=== PATIENT | male | born 1945 | race African-American/Black ===

== ENCOUNTER 2017-10-25 18:49 | Inpatient (IN) ==
[2017-10-25] MEDS ORDERED: ALBUTEROL NEB SOLN 5 MG/ML 20 ML/BOTTLE CONT NEB STA (19:28)
[2017-10-25] MEDS ORDERED: SODIUM CHLORIDE 0.9% 1,000 ML IV PRN (19:56)
[2017-10-25 20:35] LABS: Lymphocytes # 0.2 10*3/uL (1.4-4.0); Lymphocytes % 89.5 % (21.2-54.2); Mean Corpuscular HGB Conc 33.3 GM/DL (32-36); Mean Corpuscular Hemoglobin 32 PG (27-34); Mean Corpuscular Volume 97.1 FL (87-102); Mean Platelet Volume 11.1 FL (9.6-12.0); Monocytes % 5.3 % (1.7-12.7); Neutrophils % 5.2 % (38.7-73.9); Red Blood Count 2.07 MC/CUMM (3.8-5.5); Red Cell Distribution Width 13.2 % (9.3-17.3)
[2017-10-25 20:39] LABS: Hematocrit 20.1 VOL% (42.0-52.0); Hemoglobin 6.7 GM/DL (14.0-18.0); Platelet Count 21 T/CUMM (130-400); White Blood Count 0.2 T/CUMM (4-12)
[2017-10-25 21:02] LABS: Hypochromasia Slight; Lymphocytes 81 % (20-55); Platelet Estimate Decreased; Segmented Neutrophils 13 % (50-85); Total Cells Counted 100
[2017-10-25 21:03] LABS: Ovalocytes Few
[2017-10-25] MEDS ORDERED: ONDANSETRON 4 MG/2 ML VIAL IV PRN ×2 (21:39→21:58)
[2017-10-25] MEDS ORDERED: ALBUTEROL/IPRATROPIUM 3 ML NEB RESP TX PRN (21:39)
[2017-10-25] MEDS ORDERED: guaiFENesin 200 MG/10 ML UDCUP PO PRN (21:58)
[2017-10-25] MEDS ORDERED: ACETAMINOPHEN 325 MG TABLET PO PRN (21:58)
[2017-10-25] MEDS ORDERED: TEMAZEPAM 7.5 MG CAPSULE PO PRN (21:58)
[2017-10-25] MEDS ORDERED: chlorproMAZINE INJ 25 MG in SODIUM CHLORIDE 0.9% 100 ML IV PRN (21:58)
[2017-10-25] MEDS ORDERED: MYLANTA/LIDO VISC 2:1 300 ML BOTTLE SWISH/SPIT PRN (21:58)
[2017-10-25] MEDS ORDERED: LOPERAMIDE 2 MG CAPSULE PO PRN ×2 (21:58)
[2017-10-25] MEDS ORDERED: PROMETHAZINE INJ 25 MG in SODIUM CHLORIDE 0.9% 50 ML IV PRN (21:58)
[2017-10-25] MEDS ORDERED: LACTULOSE 20 GM/30 ML UDCUP PO PRN (21:58)
[2017-10-25] MEDS ORDERED: ALPRAZolam 0.25 MG TABLET PO PRN (21:58)
[2017-10-25] MEDS ORDERED: BENZTROPINE 2 MG/2 ML AMP IV PRN (21:58)
[2017-10-25] MEDS ORDERED: traMADol 50 MG TABLET PO PRN (21:58)
[2017-10-25] MEDS ORDERED: ALUMINUM/MAGNES/SIMETH MAX STR 30 ML UDCUP PO PRN (21:58)
[2017-10-25] MEDS ORDERED: chlorproMAZINE 25 MG TABLET PO PRN (21:58)
[2017-10-25] MEDS ORDERED: chlorproMAZINE INJ 50 MG in SODIUM CHLORIDE 0.9% 100 ML IV PRN (21:58)
[2017-10-25] MEDS ORDERED: diphenhydrAMINE CAP 25 MG CAPSULE PO PRN (21:58)
[2017-10-25] MEDS ORDERED: MYLANTA/LIDO VISC 2:1 300 ML BOTTLE SWISH/SWAL PRN (21:58)
[2017-10-25] MEDS ORDERED: MAGNESIUM HYDROXIDE SUSP 30 ML UDCUP PO PRN (21:58)
[2017-10-25] MEDS ORDERED: FILGRASTIM-SNDZ 300 MCG/0.5 ML SYRINGE SUBCUT ONE (22:11)
[2017-10-25 22:18] LABS: Hematocrit 19.8 VOL% (42.0-52.0); Hemoglobin 6.6 GM/DL (14.0-18.0); Lymphocytes # 0.1 10*3/uL (1.4-4.0); Lymphocytes % 81.8 % (21.2-54.2); Mean Corpuscular HGB Conc 33.3 GM/DL (32-36); Mean Corpuscular Hemoglobin 32 PG (27-34); Mean Corpuscular Volume 97.1 FL (87-102); Mean Platelet Volume 10.1 FL (9.6-12.0); Monocytes % 9.1 % (1.7-12.7); Neutrophils % 9.1 % (38.7-73.9); Red Blood Count 2.04 MC/CUMM (3.8-5.5); Red Cell Distribution Width 13.3 % (9.3-17.3)
[2017-10-25 22:21] LABS: Platelet Count 17 T/CUMM (130-400); White Blood Count 0.1 T/CUMM (4-12)
[2017-10-25 22:21] LABS: Alanine Aminotransferase < 9 U/L (16-61); Albumin 2.2 G/DL (3.4-5.0); Alkaline Phosphatase 46 U/L (45-117); Aspartate Amino Transferase 15 U/L (0-37); Blood Urea Nitrogen 48 MG/DL (7-18); Calcium 8.2 MG/DL (8.5-10.1); Glucose 168 MG/DL (74-106); Osmolality,Calculated 289.8 MOS/KG (273-304); Potassium 3.9 MMOL/L (3.5-5.1); Sodium 137 MMOL/L (136-145); Total Protein 6.5 G/DL (6.4-8.3); Uric Acid 4.8 MG/DL (3.5-7.2)
[2017-10-25 22:44] LABS: Band Neutrophils 10 % (0-10); Lymphocytes 70 % (20-55); Platelet Estimate Decreased; Segmented Neutrophils 10 % (50-85); Total Cells Counted 100
[2017-10-26] MEDS ORDERED: SODIUM CHLORIDE 0.9% 1,000 ML IV PRN (01:15)
[2017-10-26] MEDS: CEFEPIME 2,000 MG in SYRINGE 1 EACH IV SCH ×3 (01:35→21:04)
[2017-10-26 02:27] LABS: Hematocrit 22.4 VOL% (42.0-52.0); Hemoglobin 7.4 GM/DL (14.0-18.0); Lymphocytes # 0.1 10*3/uL (1.4-4.0); Lymphocytes % 93.3 % (21.2-54.2); Mean Corpuscular Hemoglobin 31 PG (27-34); Mean Corpuscular Volume 94.5 FL (87-102); Mean Platelet Volume 10.2 FL (9.6-12.0); Monocytes % 6.7 % (1.7-12.7); Red Blood Count 2.37 MC/CUMM (3.8-5.5); Red Cell Distribution Width 14.1 % (9.3-17.3)
[2017-10-26] MEDS: SODIUM CHLORIDE 0.9% 1,000 ML IV SCH ×2 (02:27→19:00)
[2017-10-26] MEDS: VANCOMYCIN INJ 1,000 MG in SODIUM CHLORIDE 0.9% 250 ML IV SCH ×2 (02:31→15:47)
[2017-10-26 02:32] LABS: Platelet Count 17 T/CUMM (130-400); White Blood Count 0.2 T/CUMM (4-12)
[2017-10-26 02:39] LABS: Lactic Acid 1.8 MMOL/L (0.4-2.0)
[2017-10-26 02:53] LABS: Apearance,Urine CLOUDY (Clear); Bacteria,Urine Many /HPF (Few); Bilirubin,Urine Negative (Negative); Blood, Urine Large mg/dL (Negative); Glucose,Urine (UA) Negative (Negative); Hyaline Casts,Urine 14 /LPF (0-3); Ketones,Urine Negative (Negative); Mucus,Urine Moderate /LPF (Occasional); Nitrite,Urine Negative (Negative); Protein,Urine 100 MG/DL; RBC,Urine 742 /HPF (0-4); Urine Color Amber (Yellow); Urine Specific Gravity 1.012 (1.001-1.035)
[2017-10-26 03:01] LABS: Alanine Aminotransferase < 9 U/L (16-61); Alkaline Phosphatase 43 U/L (45-117); Aspartate Amino Transferase 13 U/L (0-37); Blood Urea Nitrogen 48 MG/DL (7-18); Calcium 7.8 MG/DL (8.5-10.1); Glucose 177 MG/DL (74-106); Osmolality,Calculated 289.8 MOS/KG (273-304); Potassium 4.1 MMOL/L (3.5-5.1); Sodium 137 MMOL/L (136-145); Total Protein 6.2 G/DL (6.4-8.3)
[2017-10-26 03:20] LABS: Amylase 27 U/L (25-115); Troponin I Only < 0.015 NG/ML (0.00-0.045)
[2017-10-26] MEDS ORDERED: CIPROFLOXACIN INJ 400 MG in PREMIX 1 EACH IV SCH (04:00)
[2017-10-26 04:10] LABS: Lymphocytes 96 % (20-55); Total Cells Counted 100
[2017-10-26 04:12] LABS: Hypochromasia 2+; Platelet Estimate Decreased
[2017-10-26 04:13] LABS: Anisocytosis 1+; Microcytosis 1+
[2017-10-26 06:00] LABS: Bilirubin,Direct 2.06 MG/DL (0.0-0.20); Bilirubin,Indirect 1.6 MG/DL (0.0-1.0); Bilirubin,Total 3.7 MG/DL (0.2-1.0)
[2017-10-26 06:04] LABS: Hematocrit 23.3 VOL% (42.0-52.0); Hemoglobin 7.8 GM/DL (14.0-18.0)
[2017-10-26] MEDS: ALBUTEROL/IPRATROPIUM 3 ML NEB RESP TX SCH ×3 (08:25→20:45)
[2017-10-26] MEDS ORDERED: LEVOFLOXACIN INJ 750 MG in PREMIX 1 EACH IV SCH (09:00)
[2017-10-26] MEDS ORDERED: BICALUTAMIDE 50 MG TABLET PO SCH ×2 (09:00)
[2017-10-26] MEDS ORDERED: TAMSULOSIN 0.4 MG CAPSULE PO SCH (09:00)
[2017-10-26] MEDS: FILGRASTIM-SNDZ 300 MCG/0.5 ML SYRINGE SUBCUT SCH (12:06)
[2017-10-26] MEDS: DOCUSATE SODIUM 100 MG CAPSULE PO SCH ×2 (15:47→20:58)
[2017-10-26] MEDS: PANTOPRAZOLE 40 MG TABLET PO SCH (15:47)
[2017-10-26 17:00] LABS: Hematocrit 28.2 VOL% (42.0-52.0); Lymphocytes # 0.2 10*3/uL (1.4-4.0); Lymphocytes % 79.2 % (21.2-54.2); Mean Corpuscular Hemoglobin 31 PG (27-34); Mean Corpuscular Volume 91.6 FL (87-102); Mean Platelet Volume 11.3 FL (9.6-12.0); Monocytes % 12.5 % (1.7-12.7); Neutrophils % 8.3 % (38.7-73.9); Red Blood Count 3.08 MC/CUMM (3.8-5.5); Red Cell Distribution Width 16.2 % (9.3-17.3)
[2017-10-26 17:03] LABS: Hemoglobin 9.6 GM/DL (14.0-18.0); Platelet Count 51 T/CUMM (130-400)
[2017-10-26 17:04] LABS: White Blood Count 0.2 T/CUMM (4-12)
[2017-10-26] MEDS: TAMSULOSIN 0.4 MG CAPSULE PO SCH (20:58)
[2017-10-27] MEDS: SODIUM CHLORIDE 0.9% 1,000 ML IV SCH ×3 (00:54→09:08)
[2017-10-27] MEDS: ALBUTEROL/IPRATROPIUM 3 ML NEB RESP TX SCH ×4 (01:41→19:37)
[2017-10-27] MEDS: VANCOMYCIN INJ 1,000 MG in SODIUM CHLORIDE 0.9% 250 ML IV SCH ×2 (01:54→13:26)
[2017-10-27 04:38] LABS: Hematocrit 24.6 VOL% (42.0-52.0); Hemoglobin 8.7 GM/DL (14.0-18.0); Lymphocytes # 0.2 10*3/uL (1.4-4.0); Mean Corpuscular HGB Conc 35.4 GM/DL (32-36); Mean Corpuscular Hemoglobin 32 PG (27-34); Mean Corpuscular Volume 89.1 FL (87-102); Mean Platelet Volume 11.6 FL (9.6-12.0); Red Blood Count 2.76 MC/CUMM (3.8-5.5); Red Cell Distribution Width 16.4 % (9.3-17.3)
[2017-10-27 04:41] LABS: White Blood Count 0.3 T/CUMM (4-12)
[2017-10-27 04:42] LABS: Platelet Count 30 T/CUMM (130-400)
[2017-10-27 05:12] LABS: Burr Cells Slight; Hypochromasia 1+; Lymphocytes 100 % (20-55); Ovalocytes Slight; Platelet Estimate Decreased; Total Cells Counted 100
[2017-10-27 05:13] LABS: Microcytosis Slight
[2017-10-27] MEDS: CEFEPIME 2,000 MG in SYRINGE 1 EACH IV SCH ×3 (05:47→21:05)
[2017-10-27 07:41] LABS: Calcium 7.7 MG/DL (8.5-10.1); Osmolality,Calculated 282.5 MOS/KG (273-304)
[2017-10-27] MEDS: DOCUSATE SODIUM 100 MG CAPSULE PO SCH ×2 (09:10→21:10)
[2017-10-27] MEDS: PANTOPRAZOLE 40 MG TABLET PO SCH (09:10)
[2017-10-27] MEDS: FILGRASTIM-SNDZ 300 MCG/0.5 ML SYRINGE SUBCUT SCH (09:14)
[2017-10-27] MEDS ORDERED: POTASSIUM CHLORIDE 20 MEQ/15 ML UDCUP PO ONE (12:28)
[2017-10-27] MEDS: TAMSULOSIN 0.4 MG CAPSULE PO SCH (21:11)
[2017-10-28] MEDS: ALBUTEROL/IPRATROPIUM 3 ML NEB RESP TX SCH ×4 (00:35→19:05)
[2017-10-28] MEDS: VANCOMYCIN INJ 1,000 MG in SODIUM CHLORIDE 0.9% 250 ML IV SCH ×2 (01:01→15:00)
[2017-10-28] MEDS: SODIUM CHLORIDE 0.9% 1,000 ML IV SCH ×3 (01:01→21:00)
[2017-10-28] MEDS ORDERED: SODIUM CHLORIDE 0.9% 1,000 ML IV PRN (03:47)
[2017-10-28 04:51] LABS: Basophils % 1.1 % (0.0-0.8); Hematocrit 24.6 VOL% (42.0-52.0); Hemoglobin 8.5 GM/DL (14.0-18.0); Immature Granulocytes % 8.7 %; Immature Granulocytes Absolute 0.08 #; Lymphocytes # 0.5 10*3/uL (1.4-4.0); Lymphocytes % 55.4 % (21.2-54.2); Mean Corpuscular HGB Conc 34.6 GM/DL (32-36); Mean Corpuscular Hemoglobin 32 PG (27-34); Mean Corpuscular Volume 91.4 FL (87-102); Mean Platelet Volume 11.4 FL (9.6-12.0); Monocytes # 0.1 10*3/uL (0.11-0.8); Monocytes % 5.4 % (1.7-12.7); Neutrophils # 0.3 10*3/uL (1.4-7.4); Neutrophils % 29.4 % (38.7-73.9); Platelet Count 29 T/CUMM (130-400); Red Blood Count 2.69 MC/CUMM (3.8-5.5)
[2017-10-28] MEDS: CEFEPIME 2,000 MG in SYRINGE 1 EACH IV SCH (05:07)
[2017-10-28 05:08] LABS: White Blood Count 0.9 T/CUMM (4-12)
[2017-10-28 05:34] LABS: Burr Cells Slight; Hypochromasia 1+; Lymphocytes 40 % (20-55); Ovalocytes Slight; Platelet Estimate Decreased; Segmented Neutrophils 40 % (50-85); Total Cells Counted 100
[2017-10-28 05:35] LABS: Microcytosis Slight
[2017-10-28] MEDS: DOCUSATE SODIUM 100 MG CAPSULE PO SCH ×2 (09:59→20:59)
[2017-10-28] MEDS: PANTOPRAZOLE 40 MG TABLET PO SCH (09:59)
[2017-10-28] MEDS: FILGRASTIM-SNDZ 300 MCG/0.5 ML SYRINGE SUBCUT SCH (09:59)
[2017-10-28] MEDS: HEPARIN LOCK FLUSH 500 UNIT/5 ML SYRINGE IV SCH ×2 (11:49→23:47)
[2017-10-28] MEDS: TAMSULOSIN 0.4 MG CAPSULE PO SCH (20:59)
[2017-10-29] MEDS: ALBUTEROL/IPRATROPIUM 3 ML NEB RESP TX SCH ×4 (00:04→19:33)
[2017-10-29] MEDS: VANCOMYCIN INJ 1,000 MG in SODIUM CHLORIDE 0.9% 250 ML IV SCH (00:43)
[2017-10-29 05:01] LABS: Basophils % 0.3 % (0.0-0.8); Hemoglobin 7.4 GM/DL (14.0-18.0); Immature Granulocytes % 1.8 %; Immature Granulocytes Absolute 0.07 #; Lymphocytes # 1.2 10*3/uL (1.4-4.0); Lymphocytes % 31.6 % (21.2-54.2); Mean Corpuscular HGB Conc 33.6 GM/DL (32-36); Mean Corpuscular Hemoglobin 31 PG (27-34); Mean Corpuscular Volume 92.8 FL (87-102); Mean Platelet Volume 12.3 FL (9.6-12.0); Monocytes # 0.2 10*3/uL (0.11-0.8); Monocytes % 4.3 % (1.7-12.7); NRBC # 0.02 10*3/uL; Neutrophils # 2.4 10*3/uL (1.4-7.4); Red Blood Count 2.37 MC/CUMM (3.8-5.5); Red Cell Distribution Width 16.5 % (9.3-17.3); White Blood Count 3.9 T/CUMM (4-12)
[2017-10-29 05:03] LABS: Platelet Count 16 T/CUMM (130-400)
[2017-10-29] MEDS ORDERED: SODIUM CHLORIDE 0.9% 1,000 ML IV PRN ×2 (05:15→07:55)
[2017-10-29 05:24] LABS: Calcium 7.4 MG/DL (8.5-10.1); Osmolality,Calculated 286.8 MOS/KG (273-304); Potassium 2.6 MMOL/L (3.5-5.1)
[2017-10-29 05:28] LABS: Alanine Aminotransferase < 9 U/L (16-61); Albumin 1.7 G/DL (3.4-5.0); Alkaline Phosphatase 43 U/L (45-117); Aspartate Amino Transferase 18 U/L (0-37); Blood Urea Nitrogen 14 MG/DL (7-18); Calcium 7.4 MG/DL (8.5-10.1); Glucose 100 MG/DL (74-106); Osmolality,Calculated 286.8 MOS/KG (273-304); Potassium 2.6 MMOL/L (3.5-5.1); Sodium 144 MMOL/L (136-145); Total Protein 4.9 G/DL (6.4-8.3)
[2017-10-29 05:31] LABS: Band Neutrophils 1 % (0-10); Hypochromasia 1+; Lymphocytes 34 % (20-55); Nucleated Red Blood Cells 1 (0-5); Ovalocytes Slight; Platelet Estimate Decreased; Segmented Neutrophils 58 % (50-85); Total Cells Counted 100
[2017-10-29 05:32] LABS: Microcytosis Slight
[2017-10-29] MEDS ORDERED: diphenhydrAMINE CAP 25 MG CAPSULE PO PRN (07:55)
[2017-10-29] MEDS ORDERED: MAGNESIUM SULF RIDER 2 GM in PREMIX 1 EACH IV ONE (07:55)
[2017-10-29] MEDS ORDERED: ACETAMINOPHEN 325 MG TABLET PO PRN (07:55)
[2017-10-29] MEDS ORDERED: SODIUM CHLOR 0.45% KCL 20 MEQ 20 MEQ/1,000 ML BAG IV SCH (08:00)
[2017-10-29] MEDS: SODIUM CHLORIDE 0.9% 1,000 ML IV SCH (08:21)
[2017-10-29] MEDS: POTASSIUM CHLORIDE RIDER 10 MEQ in PREMIX 1 EACH IV SCH ×2 (08:22→10:06)
[2017-10-29] MEDS: CIPROFLOXACIN 500 MG TABLET PO SCH ×2 (08:22→21:21)
[2017-10-29] MEDS: DOCUSATE SODIUM 100 MG CAPSULE PO SCH ×2 (08:22→21:21)
[2017-10-29] MEDS: FILGRASTIM-SNDZ 300 MCG/0.5 ML SYRINGE SUBCUT SCH (08:22)
[2017-10-29] MEDS: PANTOPRAZOLE 40 MG TABLET PO SCH (08:22)
[2017-10-29] MEDS: POTASSIUM CHLORIDE INJ 40 MEQ in SODIUM CHLORIDE 0.45% 1,000 ML IV SCH ×2 (13:01→23:32)
[2017-10-29] MEDS: HEPARIN LOCK FLUSH 500 UNIT/5 ML SYRINGE IV SCH ×2 (19:03→23:26)
[2017-10-29 20:46] LABS: Hematocrit 30.4 VOL% (42.0-52.0); Hemoglobin 10.4 GM/DL (14.0-18.0)
[2017-10-29] MEDS: TAMSULOSIN 0.4 MG CAPSULE PO SCH (21:21)
[2017-10-30] MEDS: ALBUTEROL/IPRATROPIUM 3 ML NEB RESP TX SCH ×4 (00:34→19:24)
[2017-10-30 05:18] LABS: Basophils # 0.1 10*3/uL (0.0-0.2); Basophils % 0.6 % (0.0-0.8); Hematocrit 29.1 VOL% (42.0-52.0); Hemoglobin 10.4 GM/DL (14.0-18.0); Immature Granulocytes % 2.8 %; Immature Granulocytes Absolute 0.22 #; Lymphocytes # 1.6 10*3/uL (1.4-4.0); Lymphocytes % 20.2 % (21.2-54.2); Mean Corpuscular HGB Conc 35.7 GM/DL (32-36); Mean Corpuscular Hemoglobin 31 PG (27-34); Mean Corpuscular Volume 87.1 FL (87-102); Mean Platelet Volume 11.8 FL (9.6-12.0); Monocytes # 0.5 10*3/uL (0.11-0.8); Monocytes % 5.9 % (1.7-12.7); NRBC # 0.05 10*3/uL; Neutrophils # 5.6 10*3/uL (1.4-7.4); Neutrophils % 70.5 % (38.7-73.9); Red Blood Count 3.34 MC/CUMM (3.8-5.5); Red Cell Distribution Width 17.3 % (9.3-17.3); White Blood Count 7.9 T/CUMM (4-12)
[2017-10-30 05:21] LABS: Platelet Count 40 T/CUMM (130-400)
[2017-10-30 05:40] LABS: Band Neutrophils 3 % (0-10); Lymphocytes 17 % (20-55); Nucleated Red Blood Cells 2 (0-5); Segmented Neutrophils 74 % (50-85); Total Cells Counted 100
[2017-10-30 05:41] LABS: Atypical Lymphocytes Few; Microcytosis 1+; Platelet Estimate Decreased
[2017-10-30 05:49] LABS: Albumin 1.8 G/DL (3.4-5.0); Bilirubin,Total 2.1 MG/DL (0.2-1.0); Calcium 7.5 MG/DL (8.5-10.1); Potassium 2.8 MMOL/L (3.5-5.1); Total Protein 4.9 G/DL (6.4-8.3)
[2017-10-30] MEDS: POTASSIUM CHLORIDE INJ 40 MEQ in SODIUM CHLORIDE 0.45% 1,000 ML IV SCH ×2 (06:30→17:42)
[2017-10-30] MEDS: DOCUSATE SODIUM 100 MG CAPSULE PO SCH ×2 (08:10→20:32)
[2017-10-30] MEDS: CIPROFLOXACIN 500 MG TABLET PO SCH ×2 (08:10→20:32)
[2017-10-30] MEDS: PANTOPRAZOLE 40 MG TABLET PO SCH (08:10)
[2017-10-30] MEDS ORDERED: HEPARIN LOCK FLUSH 500 UNIT/5 ML SYRINGE IV PRN (11:26)
[2017-10-30] MEDS ORDERED: POTASSIUM CHLORIDE RIDER 10 MEQ in PREMIX 1 EACH IV PRN (11:31)
[2017-10-30] MEDS: POTASSIUM CHLORIDE RIDER 20 MEQ in PREMIX 1 EACH IV PRN ×2 (13:42→16:57)
[2017-10-30] MEDS: TAMSULOSIN 0.4 MG CAPSULE PO SCH (20:32)
[2017-10-31] MEDS: ALBUTEROL/IPRATROPIUM 3 ML NEB RESP TX SCH ×4 (00:35→19:02)
[2017-10-31] MEDS: POTASSIUM CHLORIDE INJ 40 MEQ in SODIUM CHLORIDE 0.45% 1,000 ML IV SCH ×2 (03:59→16:51)
[2017-10-31 05:49] LABS: Bilirubin,Direct 0.6 MG/DL (0.0-0.20); Bilirubin,Total 1.5 MG/DL (0.2-1.0)
[2017-10-31] MEDS: CIPROFLOXACIN 500 MG TABLET PO SCH ×2 (10:12→21:07)
[2017-10-31] MEDS: PANTOPRAZOLE 40 MG TABLET PO SCH (10:12)
[2017-10-31] MEDS: DOCUSATE SODIUM 100 MG CAPSULE PO SCH ×2 (10:12→22:15)
[2017-10-31] MEDS: TAMSULOSIN 0.4 MG CAPSULE PO SCH (22:15)
[2017-11-01] MEDS: ALBUTEROL/IPRATROPIUM 3 ML NEB RESP TX SCH ×4 (00:26→19:48)
[2017-11-01 05:27] LABS: Basophils % 0.3 % (0.0-0.8); Hematocrit 30.3 VOL% (42.0-52.0); Hemoglobin 10.1 GM/DL (14.0-18.0); Immature Granulocytes % 2.9 %; Immature Granulocytes Absolute 0.19 #; Lymphocytes # 1.1 10*3/uL (1.4-4.0); Lymphocytes % 16.7 % (21.2-54.2); Mean Corpuscular HGB Conc 33.3 GM/DL (32-36); Mean Corpuscular Hemoglobin 31 PG (27-34); Mean Corpuscular Volume 92.4 FL (87-102); Mean Platelet Volume 11.6 FL (9.6-12.0); Monocytes # 0.7 10*3/uL (0.11-0.8); Monocytes % 10.2 % (1.7-12.7); NRBC # 0.02 10*3/uL; Neutrophils # 4.7 10*3/uL (1.4-7.4); Neutrophils % 69.9 % (38.7-73.9); Platelet Count 46 T/CUMM (130-400); Red Blood Count 3.28 MC/CUMM (3.8-5.5); Red Cell Distribution Width 17.3 % (9.3-17.3); White Blood Count 6.7 T/CUMM (4-12)
[2017-11-01 05:47] LABS: Calcium 7.8 MG/DL (8.5-10.1); Osmolality,Calculated 279.3 MOS/KG (273-304); Potassium 3.9 MMOL/L (3.5-5.1)
[2017-11-01 06:54] LABS: Band Neutrophils 1 % (0-10); Hypochromasia 1+; Lymphocytes 14 % (20-55); Platelet Estimate Decreased; Segmented Neutrophils 80 % (50-85); Total Cells Counted 100
[2017-11-01] MEDS: PANTOPRAZOLE 40 MG TABLET PO SCH (10:21)
[2017-11-01] MEDS: CIPROFLOXACIN 500 MG TABLET PO SCH ×2 (10:21→20:32)
[2017-11-01] MEDS: DOCUSATE SODIUM 100 MG CAPSULE PO SCH ×2 (10:21→20:32)
[2017-11-01] MEDS: POTASSIUM CHLORIDE INJ 40 MEQ in SODIUM CHLORIDE 0.45% 1,000 ML IV SCH ×3 (10:21→20:34)
[2017-11-01] MEDS ORDERED: BENZTROPINE 2 MG/2 ML AMP IV PRN (11:38)
[2017-11-01] MEDS ORDERED: traMADol 50 MG TABLET PO PRN (11:38)
[2017-11-01] MEDS ORDERED: MAGNESIUM HYDROXIDE SUSP 30 ML UDCUP PO PRN (11:38)
[2017-11-01] MEDS ORDERED: TEMAZEPAM 7.5 MG CAPSULE PO PRN (11:38)
[2017-11-01] MEDS ORDERED: chlorproMAZINE INJ 50 MG in SODIUM CHLORIDE 0.9% 100 ML IV PRN (11:38)
[2017-11-01] MEDS ORDERED: ACETAMINOPHEN 325 MG TABLET PO PRN (11:38)
[2017-11-01] MEDS ORDERED: MYLANTA/LIDO VISC 2:1 300 ML BOTTLE SWISH/SPIT PRN (11:38)
[2017-11-01] MEDS ORDERED: chlorproMAZINE INJ 25 MG in SODIUM CHLORIDE 0.9% 100 ML IV PRN (11:38)
[2017-11-01] MEDS ORDERED: LOPERAMIDE 2 MG CAPSULE PO PRN ×2 (11:38)
[2017-11-01] MEDS ORDERED: diphenhydrAMINE CAP 25 MG CAPSULE PO PRN (11:38)
[2017-11-01] MEDS ORDERED: ALUMINUM/MAGNES/SIMETH MAX STR 30 ML UDCUP PO PRN (11:38)
[2017-11-01] MEDS ORDERED: chlorproMAZINE 25 MG TABLET PO PRN (11:38)
[2017-11-01] MEDS ORDERED: LACTULOSE 20 GM/30 ML UDCUP PO PRN (11:38)
[2017-11-01] MEDS ORDERED: ALPRAZolam 0.25 MG TABLET PO PRN (11:38)
[2017-11-01] MEDS: TAMSULOSIN 0.4 MG CAPSULE PO SCH (20:32)
[2017-11-02] MEDS: ALBUTEROL/IPRATROPIUM 3 ML NEB RESP TX SCH ×4 (00:50→19:59)
[2017-11-02 03:20] LABS: Basophils % 0.2 % (0.0-0.8); Hematocrit 29.7 VOL% (42.0-52.0); Hemoglobin 9.7 GM/DL (14.0-18.0); Immature Granulocytes Absolute 0.11 #; Lymphocytes % 18.8 % (21.2-54.2); Mean Corpuscular HGB Conc 32.7 GM/DL (32-36); Mean Corpuscular Hemoglobin 30 PG (27-34); Mean Corpuscular Volume 92.5 FL (87-102); Mean Platelet Volume 11.4 FL (9.6-12.0); Monocytes # 0.7 10*3/uL (0.11-0.8); Monocytes % 12.2 % (1.7-12.7); Neutrophils # 3.6 10*3/uL (1.4-7.4); Neutrophils % 66.8 % (38.7-73.9); Platelet Count 51 T/CUMM (130-400); Red Blood Count 3.21 MC/CUMM (3.8-5.5); Red Cell Distribution Width 17.2 % (9.3-17.3); White Blood Count 5.4 T/CUMM (4-12)
[2017-11-02 03:52] LABS: Band Neutrophils 2 % (0-10); Lymphocytes 14 % (20-55); Macrocytosis 1+; Platelet Estimate Decreased; Segmented Neutrophils 80 % (50-85); Total Cells Counted 100
[2017-11-02] MEDS: CIPROFLOXACIN 500 MG TABLET PO SCH ×2 (08:45→20:39)
[2017-11-02] MEDS: PANTOPRAZOLE 40 MG TABLET PO SCH (08:45)
[2017-11-02] MEDS: DOCUSATE SODIUM 100 MG CAPSULE PO SCH ×2 (08:45→20:39)
[2017-11-02] MEDS: POTASSIUM CHLORIDE INJ 40 MEQ in SODIUM CHLORIDE 0.45% 1,000 ML IV SCH ×2 (08:45→20:41)
[2017-11-02] MEDS: TAMSULOSIN 0.4 MG CAPSULE PO SCH (20:39)
[2017-11-03] MEDS: ALBUTEROL/IPRATROPIUM 3 ML NEB RESP TX SCH ×4 (00:09→19:20)
[2017-11-03 05:37] LABS: Basophils % 0.2 % (0.0-0.8); Hematocrit 27.9 VOL% (42.0-52.0); Hemoglobin 9.4 GM/DL (14.0-18.0); Immature Granulocytes % 1.9 %; Immature Granulocytes Absolute 0.09 #; Lymphocytes # 0.9 10*3/uL (1.4-4.0); Lymphocytes % 19.1 % (21.2-54.2); Mean Corpuscular HGB Conc 33.7 GM/DL (32-36); Mean Corpuscular Hemoglobin 30 PG (27-34); Mean Corpuscular Volume 90.3 FL (87-102); Mean Platelet Volume 9.9 FL (9.6-12.0); Monocytes # 0.6 10*3/uL (0.11-0.8); Monocytes % 12.7 % (1.7-12.7); Neutrophils # 3.2 10*3/uL (1.4-7.4); Neutrophils % 66.1 % (38.7-73.9); Platelet Count 52 T/CUMM (130-400); Red Blood Count 3.09 MC/CUMM (3.8-5.5); White Blood Count 4.8 T/CUMM (4-12)
[2017-11-03 06:04] LABS: Band Neutrophils 1 % (0-10); Lymphocytes 11 % (20-55); Promyelocytes 1 %; Segmented Neutrophils 75 % (50-85); Total Cells Counted 100
[2017-11-03 06:05] LABS: Microcytosis 1+; Platelet Estimate Decreased
[2017-11-03] MEDS: POTASSIUM CHLORIDE INJ 40 MEQ in SODIUM CHLORIDE 0.45% 1,000 ML IV SCH ×3 (08:02→22:15)
[2017-11-03] MEDS: PANTOPRAZOLE 40 MG TABLET PO SCH (08:03)
[2017-11-03] MEDS: DOCUSATE SODIUM 100 MG CAPSULE PO SCH ×2 (08:03→20:38)
[2017-11-03] MEDS: CIPROFLOXACIN 500 MG TABLET PO SCH ×2 (08:03→20:38)
[2017-11-03] MEDS: TAMSULOSIN 0.4 MG CAPSULE PO SCH (20:38)
[2017-11-04] MEDS: ALBUTEROL/IPRATROPIUM 3 ML NEB RESP TX SCH ×2 (01:20→06:48)
[2017-11-04 05:10] LABS: Basophils % 0.2 % (0.0-0.8); Hematocrit 26.2 VOL% (42.0-52.0); Hemoglobin 8.9 GM/DL (14.0-18.0); Immature Granulocytes % 1.6 %; Immature Granulocytes Absolute 0.09 #; Lymphocytes # 0.9 10*3/uL (1.4-4.0); Lymphocytes % 16.3 % (21.2-54.2); Mean Corpuscular Hemoglobin 31 PG (27-34); Mean Corpuscular Volume 91.6 FL (87-102); Monocytes # 0.9 10*3/uL (0.11-0.8); Monocytes % 15.3 % (1.7-12.7); Neutrophils # 3.8 10*3/uL (1.4-7.4); Neutrophils % 66.6 % (38.7-73.9); Platelet Count 75 T/CUMM (130-400); Red Blood Count 2.86 MC/CUMM (3.8-5.5); Red Cell Distribution Width 16.4 % (9.3-17.3); White Blood Count 5.8 T/CUMM (4-12)
[2017-11-04 05:41] LABS: Lymphocytes 15 % (20-55); Platelet Estimate Decreased; Segmented Neutrophils 75 % (50-85); Total Cells Counted 100
[2017-11-04 05:42] LABS: Giant Platelets Few; Hypochromasia 1+; Microcytosis 1+
[2017-11-04 05:43] LABS: Albumin 1.9 G/DL (3.4-5.0); Bilirubin,Total 1.2 MG/DL (0.2-1.0); Calcium 7.5 MG/DL (8.5-10.1); Potassium 4.3 MMOL/L (3.5-5.1); Total Protein 5.6 G/DL (6.4-8.3)
[2017-11-04 06:24] LABS: Albumin 1.9 G/DL (3.4-5.0); Bilirubin,Direct 0.46 MG/DL (0.0-0.20); Bilirubin,Indirect 0.7 MG/DL (0.0-1.0); Bilirubin,Total 1.2 MG/DL (0.2-1.0); Calcium 7.5 MG/DL (8.5-10.1); Potassium 4.3 MMOL/L (3.5-5.1); Total Protein 5.6 G/DL (6.4-8.3)
[2017-11-04 07:53] VITALS: BP 108/62
[2017-11-04] MEDS: DOCUSATE SODIUM 100 MG CAPSULE PO SCH (08:29)
[2017-11-04] MEDS: CIPROFLOXACIN 500 MG TABLET PO SCH (08:29)
[2017-11-04] MEDS: PANTOPRAZOLE 40 MG TABLET PO SCH (08:29)
[2017-11-04] MEDS: POTASSIUM CHLORIDE INJ 40 MEQ in SODIUM CHLORIDE 0.45% 1,000 ML IV SCH (10:29)
== END 2017-11-04 11:20 | disposition home health service (06) | DRG 871 ==
LOC: EDUNIT# → EDBD → N.ED 18:49 → SUATTDRO 20:29 → N.EDINP 20:29 → N.4E 21:12 → N.CC 10-26 01:08 → N.4E 10-27 15:22
PROVIDERS: ADMIT Specialist; ATTEND Internal Medicine